=== PATIENT | female | born 1935 | race Caucasian/White ===

== ENCOUNTER → 2016-06-26 | Outpatient (CLI) | payer MEDICARE ==
--- NOTE | ~2016-06-26 | TM ---
[id number] NAME: KRYSTAL CARRILLO MR#: [id number] EXAM Lexiscan Cardiolite stress test, nuclear portion. PROCEDURE Using technetium-99m labeled Cardiolite, rest and stress SPECT images were obtained. Multiple SPECT images were obtained in various views including horizontal and vertical long axis and short axis views of the left ventricle. Images were obtained by gated SPECT method. Patient was administered 10.23 mCi of Cardiolite at rest. Patient was administered 31 mCi of Cardiolite after Lexiscan infusion was completed. On the stress images, there is normal perfusion noted. The rest images show normal perfusion. Comparing rest and stress images, there is no stress induced ischemia noted. The left ventricular ejection fraction is calculated to be 68%. There is no focal wall motion abnormality seen. CONCLUSIONS 1. No stress induced ischemia noted. 2. The left ventricular ejection fraction is calculated to be 68%. 3. There is no focal wall motion abnormality seen. 4. Normal Lexiscan Cardiolite stress test. Dictated by...
--- NOTE | ~2016-06-26 | ST ---
Unit #: [id number] #: [id number] Patient: KRYSTAL CARRILLO [id number] [address] [address] [id number] MR#: [id number] NAME: KRYSTAL CARRILLO : 1935 SEX: F STUDY DATE/TIME: 06/26/2016 UNIT: [facility] ROOM: STUDY DESCRIPTION: Attending Physician: Debbie Tineo M.D. Primary Care Physician: Kris Yuan M.D. CARDIOLOGY REPORT EXAM Lexiscan Cardiolite stress test. FINDINGS Baseline EKG: Normal sinus rhythm with ventricular rate 68 beats per minute, left anterior fascicular block, some left atrial abnormality, poor R-wave progression. PROCEDURE Lexiscan is a 4-minute test with Lexiscan being injected within the first minute. Next, at the beginning of the test the patient went into an atrial fibrillation with rapid ventricular response. Ventricular rate was 120-130 beats per minute. It continued throughout the 4-minute test until recovery. Within 30 seconds, the patient had converted back to normal sinus rhythm. The patient had no complaints of chest pain, palpitations, or dizziness. Had increased shortness of breath and fatigueness which resolved in recovery phase. Next, maximum heart rate response was 144 beats per minute once the patient was in atrial fibrillation with RVR and maximum blood pressure response was 144/80 mmHg. EKG during the test besides going into atrial fibrillation showed some nonspecific ST-T wave abnormalities, a rare premature ventricular complex. Next, Lexiscan was injected after Lexiscan within the first minute of the test. Radionuclide tests pending. Please correlate with nuclear images. Dictated by... Ileana Orona A.P.R.N. for Vitor Lebron/clara TD: 06/26/2016 09:51 JOB #: [id number] Unit #: [id number] #: [id number] Patient: KRYSTAL CARRILLO CARDIOLOGY REPORT Page 1 of 1 X Ileana Orona APRN CARDIOLOGY REPORT
== END | disposition home or self-care (01) ==
LOC: CNUC 07:35
DX: R07.9 Chest pain, unspecified (principal); R42 Dizziness and giddiness; E78.5 Hyperlipidemia, unspecified; I10 Essential (primary) hypertension
CPT/HCPCS: 78452; 93017; A9500; J2785

== ENCOUNTER → 2016-07-24 | Outpatient (CLI) | payer MEDICARE ==
--- NOTE | ~2016-07-24 | MY11 ---
[facility] A Service of [facility] RADIOLOGY TEXT RESULTS PATIENT: KRYSTAL CARRILLO LOCATION: [facility] : 35 UNIT #: [id number] AGE: [address]: Kris Yuan MD SEX: F ORDER DR: [id number] [place] [id number] P MR#: [id number] Acc #: [id number] NAME: KRYSTAL CARRILLO : 1935 SEX: F STUDY DATE/TIME: 07/24/2016 12:15 UNIT: [facility] ROOM: STUDY DESCRIPTION: MY Mammogram Screening Dig Jose R Attending Physician: Kris Yuan M.D. Ordering Physician: Kris Yuan M.D. Primary Care Physician: Kris Yuan M.D. MEDICAL IMAGING REPORT This report is preliminary unless electronic signature is present. EXAMINATION Bilateral digital screening mammogram with CAD. DATE 07/24/2016 HISTORY 80-year-old female with family history of breast cancer in a niece. No personal history of breast cancer or current complaints. Patient states she has a bruise on her right breast. Currently, is on Coumadin. COMPARISON Bilateral screening mammogram, 02/08/2015, 02/06/2014, 02/03/2013. FINDINGS CC and MLO views were obtained of each breast utilizing digital technique and reviewed with an FDA-approved CAD device. Scattered fibroglandular densities are present bilaterally. An oval circumscribed less than 1 cm nodule within the central third right breast upper/inner quadrant. It has either a calcification or biopsy clip within it, which is new since the previous exam. As there is no history of previous biopsy, I suspect this may represent a developing dystrophic calcification within an involuting fibroadenoma, but nonetheless has a benign appearance. No new or developing nodule is identified. No architectural distortion. IMPRESSION 1. BIRADS category 2. Benign findings. Routine bilateral screening mammogram is recommended in one year. Patients over the age of 40 are entered into a reminder system with target due date for the next mammogram. A result letter will also be sent to the [facility] A Service of [facility] RADIOLOGY TEXT RESULTS PATIENT: KRYSTAL CARRILLO LOCATION: [facility] : 35 UNIT #: [id number] AGE: [address]: Kris Yuan MD SEX: F ORDER DR: patient. BIRADS: 2 Benign findings. Dictated by... Mariajose Zarco M.D. THIS IS AN ELECTRONICALLY VERIFIED REPORT Mariajose Zarco M.D. at 07/29/2016 8:44 AM SANJUANA/everardo TD: 07/24/2016 16:22 JOB #: [id number] MEDICAL IMAGING REPORT Page 1 of 1
== END | disposition home or self-care (01) ==
LOC: SMAM 08:20
DX: Z12.31 Encounter for screening mammogram for malignant neoplasm of breast (principal); Z80.3 Family history of malignant neoplasm of breast
CPT/HCPCS: G0202